=== PATIENT | male | born 1990 | race Caucasian/White ===

== ENCOUNTER 2020-09-04 11:12 | Emergency (ER) | payer OTHER ==
[2020-09-04 11:30] VITALS: BP 146/90; PULSE 95; TEMP 98.4; BMI 27.8
== END 2020-09-04 12:35 | disposition home or self-care (01) ==
LOC: FER 11:12
PROC: 0HQGXZZ Repair Left Hand Skin, External Approach (ICD-10-PCS; principal; 2020-09-04)
DX: S61.211A Laceration without foreign body of left index finger without damage to nail, initial encounter (principal)
CPT/HCPCS: 99282-25